=== PATIENT | female | born 1990 | race African-American/Black ===

== ENCOUNTER 2017-10-27 17:35 | Emergency (ER) | payer MEDICAID ==
[~2017-10-27] VITALS: Ht 154.9 cm; Wt 61.2 kg
[~2017-10-27 17:35] MED LIST: IBUPROFEN600 MG ORAL; IBUPROFEN600 MG PO; NAPROXEN375 MG ORAL; NKM; NORCO 5-325 TA1 EACH ORAL; ONDANSETRON ODT4 MG ORAL; PRENATAL FORMU1 EAC2 ORAL
[2017-10-27 17:52] VITALS: BP 103/69
--- NOTE | 2017-10-27 18:17 | Emergency Room Report ---
History of Present Illness General Chief Complaint: Abdominal Pain Source: Patient Present Illness HPI 27-year-old female patient presents ER complaining of pelvic pain for the past few days. Also complaining of vaginal discharge and foul smelling odor during this time. Denies frequency, urgency, hematuria, dysuria. Reports last menstrual period on the 10th of this month, normal for her. Denies diarrhea, normal bowel movements. Reports sexual activity with one sexual partner few days ago, previously a week before then, states she was tested for STI 1 month ago and was negative. Denies fever, chest pain, shortness breath, back pain, vomiting. denies partner having symptoms. Works at [employer]. Allergies: Coded Allergies: No Known Allergies (Unverified , 07/12/12) Patient History Past Medical History: see triage record Last Menstrual Period: 10/09/2017 Reviewed Nursing Documentation: PMH: Agreed; PSxH: Agreed Nursing Documentation-PMH Past Medical History: No Stated History Review of Systems All Other Systems: negative except mentioned in HPI Physical Exam Vital Signs Date Time Temp Pulse Resp B/P (MAP) Pulse Ox O2 Delivery O2 Flow Rate FiO2 10/27/17 17:42 98.3 88 16 103/69 99 Room Air 98.2 Sp02 EP Interpretation: reviewed, normal General Appearance: well appearing, no apparent distress, alert, GCS 15, non- toxic Head: normocephalic, atraumatic Eyes: bilateral eye normal inspection, bilateral eye PERRL ENT: hearing grossly normal, normal pharynx, no angioedema, normal voice, uvula midline, moist mucus membranes Neck: full range of motion Respiratory: lungs clear, normal breath sounds, no rhonchi, no respiratory distress, no accessory muscle use, no wheezing, speaking full sentences Cardiovascular #1: regular rate, rhythm, no edema Gastrointestinal: non tender, soft, no mass, non-distended, no guarding, no rebound, other - negative rovsing, negative Arora, negative obturator Genitourinary: no CVA tenderness, deferred Musculoskeletal: back normal, digits/nails normal, gait/station normal, normal range of motion, non-tender Neurologic: alert, oriented x3, responsive, motor strength/tone normal, sensory intact Psychiatric: mood/affect normal Skin: no rash Medical Decision Making PA Attestation Dr. Norman is my supervising Physician whom patient management has been discussed with. Diagnostic Impression: Primary Impression: Urinary tract infection Additional Impression: Bacterial vaginosis ER Course Pt presents to ED c/o urinary symptoms. DDX considered but are not limited to cystitis, pyelonephritis, STI, vaginitis, . No abdominal tenderness to palpation, negative drill operator, negative Arora, negative Rovsing, low suspicion for cholecystitis or appendicitis, does not require imaging or labs at this time. VITAL SIGNS are WNL, patient is afebrile. Ordered UA and urine . ER COURSE Clinical presentation, patient complaining of foul-smelling odor with discharge , gerardo provide metronidazole to treat for bacterial vaginosis. Pelvic exam deferred. do not drink alcohol while taking medication. UA results show moderate bacteria with 20-30 WBCs, indicate likely UTI, will treat with abx. urine negative. Discuss results with patient. Reports sexual activity. Wear condoms during sex. Alert sexual partners for need for testing. If concern for STI, followup with STI clinic for testing and treatment. Denies STI concern. patient states she works at [employer] and will get tested when she goes to work tomorrow. Patient is resting comfortably in chair, nontoxic appearing, in no acute distress. Patient states they feel better and is ready to go home. DISCHARGE -Rx provided for Keflex -Rx provided for Flagyl. Do not drink while on medication. Patient is stable for discharge. Patient resting comfortably, in no acute distress, nontoxic appearing, talking without difficulty, laughing and smiling. Will provide with patient care instructions and any necessary prescriptions. Patient understands and agrees to treatment plan. Patient encouraged to drink plenty of fluids. Patient to take medication as instructed. Care plan and follow-up instructions provided. Patient questions asked and answered. Reports understanding and agreement to treatment plan. Patient instructed to follow-up with primary care provider in 3 - 5 days. ER precautions given. Patient instructed to return to ER immediately for any new or worsening of symptoms. Including but not limited to fever, abdominal pain , intractable vomiting. - Please note that this Emergency Department Report was dictated using [employer][email or web address] bender technology software, occasionally this can lead to erroneous entry secondary to interpretation by the dictation equipment. Labs Test 10/27/17 17:50 Urine Color Pale yellow Urine Appearance Slightly cloudy Urine pH 8 (4.5-8.0) Urine Specific [place] 1.015 (1.005-1.035) Urine Protein 1+ (NEGATIVE) Urine Glucose (UA) Negative (NEGATIVE) Urine Ketones Negative (NEGATIVE) Urine Blood Negative (NEGATIVE) Urine Nitrite Negative (NEGATIVE) Urine Bilirubin Negative (NEGATIVE) Urine Urobilinogen Normal MG/DL (0.0-1.0) Urine Leukocyte Esterase 3+ (NEGATIVE) Urine RBC 0 /HPF (0 - 2) Urine WBC 20-30 /HPF (0 - 2) Urine Squamous Epithelial Cells Many /LPF (NONE/OCC) Urine Amorphous Sediment Moderate /LPF (NONE) Urine Bacteria Moderate /HPF (NONE) Urine HCG, Qualitative Negative (NEGATIVE) Last Vital Signs Date Time Temp Pulse Resp B/P (MAP) Pulse Ox O2 Delivery O2 Flow Rate FiO2 10/27/17 17:52 98.2 16 103/69 99 Room Air 98.2 10/27/17 17:42 88 Disposition: HOME, SELF-CARE Condition: Stable Scripts Metronidazole* (FLAGYL*) 500 Mg Tablet 500 MG ORAL BID for 7 Days, #14 TAB 0 Refills Prov: Jarvis Marshall 10/27/17 Cephalexin* (KEFLEX*) 500 Mg Capsule 500 MG ORAL EVERY 12 HOURS, #14 CAP 0 Refills Prov: Jarvis Marshall 10/27/17 Patient Instructions: Bacterial Vaginosis, [id number], Urinary Tract Infection, [id number] Additional Instructions: Followup with primary care provider and/or followup with STI clinic for further evaluation and treatment. Alert sexual partners for need for evaluation and treatment. Wear condoms during sex. Avoid sexual activity for 2 weeks. Drink plenty of fluids. Take medications as instructed. Do drink alcohol while taking medication. Patient questions asked and answered. ER precautions given, patient instructed to return to ER immediately for any new or worsening of symptoms. Jarvis Marshall Oct 27, 2017 18:17
[2017-10-27 19:10] LABS: APPEARANCE,URINE SLIGHTLY CLOUDY; BILIRUBIN, URINE NEGATIVE (NEGATIVE); COLOR,URINE PALE YELLOW; GLUCOSE, URINE (UA) NEGATIVE (NEGATIVE); KETONES,URINE NEGATIVE (NEGATIVE); LEUKOCYTE ESTERASE ,URINE 3+ (NEGATIVE); NITRITE,URINE NEGATIVE (NEGATIVE); PH,URINE 8 (4.5-8.0); PROTEIN,URINE 1+ (NEGATIVE); UROBILINOGEN,URINE NORMAL MG/DL (0.0-1.0)
[2017-10-27] MEDS ORDERED: CEPHALEXIN500 MG ORAL (19:53)
[2017-10-27] MEDS ORDERED: FLAGYL500 MG ORAL (19:53)
[2017-10-27 19:54] VITALS: BP 106/70
[2017-10-27 20:03] VITALS: BP 103/69
== END 2017-10-27 20:03 | disposition home or self-care (01) ==
LOC: EMR 19:34
DX: N39.0 Urinary tract infection, site not specified (principal); N76.0 Acute vaginitis
CPT/HCPCS: 81003; 81025; 87086; 99283